=== PATIENT | male | born 1995 | race Caucasian/White ===

== ENCOUNTER 2022-05-31 11:06 | Emergency (ER) | payer OTHER ==
[~2022-05-31] VITALS: Ht 165.1 cm; Wt 75.7 kg
[2022-05-31 11:13] VITALS: BP 134/70
--- NOTE | 2022-05-31 11:24 | NUR ---
screen examiner at bed side
--- NOTE | 2022-05-31 11:26 | NUR ---
ED physician at bedside
--- NOTE | 2022-05-31 13:03 | NUR ---
Patient discharged to home in stable condition. Written and verbal after care instructions given. Patient verbalizes understanding of instruction.
== END 2022-05-31 13:03 | disposition home or self-care (01) ==
LOC: ER 11:14
DX: S46.011A Strain of muscle(s) and tendon(s) of the rotator cuff of right shoulder, initial encounter (principal); F41.9 Anxiety disorder, unspecified; F90.9 Attention-deficit hyperactivity disorder, unspecified type; X58.XXXA Exposure to other specified factors, initial encounter; Y93.89 Activity, other specified; Y92.89 Other specified places as the place of occurrence of the external cause; Y99.8 Other external cause status
CPT/HCPCS: 73030-TC